=== PATIENT | male | born 2000 | race Two or more races ===

== ENCOUNTER 2020-07-04 18:02 | Emergency (ER) | payer SELFPAY ==
[~2020-07-04] VITALS: Ht 175.3 cm; Wt 86.2 kg
[2020-07-04 18:07] VITALS: BP 150/84
--- NOTE | 2020-07-04 18:08 | NUR ---
20Y M C/C left shoulder dislocation occured x10min ago while he was putting his jacket on. He reports this is the thrid time he dislocated his shoulder. 10/10 sharp stabbing left shoulder pain. Visible deformity of left shoulder pain, tenderness to palpation. PMH: Shoulder dislocation NKA
[2020-07-04] MEDS ORDERED: KETOROLAC 30 MG/ML VIAL IM ONE (18:20)
--- NOTE | 2020-07-04 18:23 | NUR ---
Pt went to CT via wheelchair.
--- NOTE | 2020-07-04 18:35 | NUR ---
ERPA relocated shoulder.
[2020-07-04] MEDS ORDERED: NAPR-54 PO (18:47)
--- NOTE | 2020-07-04 18:51 | NUR ---
X RAY AT BEDSIDE.
[2020-07-04 18:55] VITALS: BP 150/84
== END 2020-07-04 18:55 | disposition home or self-care (01) ==
LOC: MED 18:02
DX: S43.005A Unspecified dislocation of left shoulder joint, initial encounter (principal); Z79.899 Other long term (current) drug therapy; X58.XXXA Exposure to other specified factors, initial encounter; Y93.89 Activity, other specified; Y92.89 Other specified places as the place of occurrence of the external cause; Y99.8 Other external cause status
CPT/HCPCS: 23650; 73020; 73030; 96372; 99284; J1885